=== PATIENT | male | born 1960 | race Caucasian/White ===

== ENCOUNTER → 2023-12-09 12:53 | Outpatient (REF) | payer OTHER, SELFPAY | LOC: RAD 12:53 | PROVIDERS: ATTENDING PHYSICIAN Surgery Vascular Surgery | DX: I72.3 Aneurysm of iliac artery (principal); I77.72 Dissection of iliac artery; I77.9 Disorder of arteries and arterioles, unspecified | CPT/HCPCS: 93922 ==

== ENCOUNTER → 2023-12-15 11:44 | Outpatient (REF) | payer OTHER, SELFPAY ==
[2023-12-15 12:58] LABS: Blood Urea Nitrogen 12 mg/dl (9-20); Calcium 11.8 mg/dl (8.4-10.2); Carbon Dioxide 26 mmol/L (22-30); Chloride 105 mmol/L (98-107); Glucose 90 mg/dl (70-99); Potassium 4.7 mmol/L (3.5-5.1); Sodium 137 mmol/L (135-145); eGFR > 60.00
== END ==
LOC: REG 11:44
PROVIDERS: ATTENDING PHYSICIAN Surgery Vascular Surgery; FAMILY PHYSICIAN Family Medicine
DX: I77.9 Disorder of arteries and arterioles, unspecified (principal)
CPT/HCPCS: 36415; 80048

== ENCOUNTER → 2023-12-16 11:54 | Outpatient (REF) | payer OTHER, SELFPAY | LOC: RAD 11:54 | PROVIDERS: ATTENDING PHYSICIAN Surgery Vascular Surgery; FAMILY PHYSICIAN Family Medicine | DX: I72.3 Aneurysm of iliac artery (principal); I77.2 Rupture of artery; I77.9 Disorder of arteries and arterioles, unspecified | CPT/HCPCS: 74174; Q9967 ==

== ENCOUNTER → 2025-02-12 10:26 | Outpatient (REF) | payer OTHER, SELFPAY ==
[2025-02-12 12:14] LABS: Blood Urea Nitrogen 5 mg/dl (9-20); Calcium 11.3 mg/dl (8.4-10.2); Carbon Dioxide 23 mmol/L (22-30); Chloride 109 mmol/L (98-107); Glucose 123 mg/dl (70-99); Potassium 4.0 mmol/L (3.5-5.1); Sodium 138 mmol/L (135-145); eGFR > 60.00
== END ==
LOC: REG 10:26
PROVIDERS: ATTENDING PHYSICIAN Registered Nurse
DX: I72.3 Aneurysm of iliac artery (principal); I77.9 Disorder of arteries and arterioles, unspecified
CPT/HCPCS: 36415; 80048

== ENCOUNTER → 2025-02-14 09:43 | Outpatient (REF) | payer OTHER, SELFPAY | LOC: RAD 09:43 | PROVIDERS: ATTENDING PHYSICIAN Registered Nurse; FAMILY PHYSICIAN Family Medicine | DX: I77.9 Disorder of arteries and arterioles, unspecified (principal); I72.3 Aneurysm of iliac artery | CPT/HCPCS: 93922; 93925 ==

== ENCOUNTER → 2025-03-01 11:17 | Outpatient (REF) | payer OTHER, SELFPAY | LOC: RAD 11:17 | PROVIDERS: ATTENDING PHYSICIAN Registered Nurse; FAMILY PHYSICIAN Family Medicine | DX: I72.3 Aneurysm of iliac artery (principal); I77.9 Disorder of arteries and arterioles, unspecified | CPT/HCPCS: 74174; Q9967 ==